=== PATIENT | female | born 1990 | race African-American/Black ===

== ENCOUNTER 2016-07-21 14:29 | Emergency (ER) | payer BC ==
--- NOTE | ~2016-07-21 | US134 ---
[facility] A Service of [facility] RADIOLOGY TEXT RESULTS PATIENT: JL VIVEROS LOCATION: [facility] : [birth year] UNIT #: [id number] AGE: [address]: Mustapha Morgan MD SEX: F ORDER DR: [id number] [facility] [address] [place], [place] [address] [id number] MR#: [id number] Acc #: [id number] NAME: JL VIVEROS : 1990 SEX: F STUDY DATE/TIME: 07/21/2016 15:29 UNIT: [facility] ROOM: STUDY DESCRIPTION: US Transvaginal Attending Physician: Mustapha Morgan M.D. Ordering Physician: Mustapha Morgan M.D. Primary Care Physician: No Primary Care Physician MEDICAL IMAGING REPORT This report is preliminary unless electronic signature is present EXAM Pelvic ultrasound INDICATIONS Pelvic cramping for the past week. Positive urine test. Quantitative hCG not available at the time of this study. PROCEDURE Cisneros-scale and Doppler imaging of the pelvis via transvaginal approach. COMPARISON None FINDINGS Uterus is anteverted and measures 9.9 x 5.0 x 5.3 cm. Endometrium measures 1.2 cm. No intrauterine is seen. The right ovary measures 5.0 x 2.2 x 2.5 cm. There is a 2.1-cm, crenulated lesion in the right ovary. Left ovary measures 3.5 x 1.3 x 3.3 cm and is normal. No free pelvic fluid. IMPRESSION 1. Negative pelvic ultrasound. No evidence for intrauterine . This is nonspecific and could represent changes of very early or previous spontaneous . 2. A 2.1-cm crenulated lesion in the right ovary has the appearance of a collapsing corpus luteum. Dictated by... Craig Hubbard M.D. THIS IS AN ELECTRONICALLY VERIFIED REPORT Craig Hubbard M.D. at 07/22/2016 1:56 PM [facility] A Service of [facility] RADIOLOGY TEXT RESULTS PATIENT: JL VIVEROS LOCATION: [facility] : [birth year] UNIT #: [id number] AGE: [address]: Mustapha Morgan MD SEX: F ORDER DR: MARTELL/kary TD: 07/21/2016 17:19 JOB #: [id number] MEDICAL IMAGING REPORT Page 1 of 1 COPY
[2016-07-21 15:23] LABS: BASOPHIL% 0.5 % (0-2.5); EOSINOPHIL# 0.2 X10e3 (0-0.7); HEMATOCRIT 41.1 % (35.0-45.0); HEMOGLOBIN 13.5 gm/dL (12.0-16.0); LYMPHOCYTE# 2.4 X10e3 (1.0-3.5); LYMPHOCYTE% 31.4 % (17.0-45.0); MEAN CELL VOLUME 91.9 FL (83-96); MEAN CORPUSCULAR HEMOGLOBIN 30.2 PG (28-34); MEAN CORPUSCULAR HGB CONC 32.9 g/dL (30-36); MEAN PLATELET VOLUME 9.3 FL (6.5-11.5); MONOCYTE# 0.8 X10e3 (0-1.0); NEUTROPHIL# 4.3 X10e3 (1.5-7.1); NEUTROPHIL% 56.1 % (40-75); PLATELET COUNT 209 X10e3 (140-420); RED BLOOD COUNT 4.47 X10e (3.90-5.30); RED CELL DISTRIBUTION WIDTH 13.4 % (11.0-15.5); WHITE BLOOD COUNT 7.6 X10e3 (4.0-10.5)
[2016-07-21 15:33] LABS: URINE SOURCE CLEAN CATCH
[2016-07-21 15:42] LABS: DIFF IND NO
[2016-07-21 15:45] LABS: URINE APPEARANCE CLEAR; URINE BILIRUBIN NEG (NEG); URINE BLOOD NEG (NEG); URINE COLOR YELLOW; URINE GLUCOSE NEG (NEG); URINE KETONE TRACE (NEG); URINE LEUKOCYTE ESTERASE NEG (NEG); URINE NITRATE NEG (NEG); URINE PROTEIN NEG (NEG); URINE SPECIFIC GRAVITY 1.035 (1.003-1.035)
[2016-07-21 15:49] LABS: BILIRUBIN, DIRECT 0.1 mg/dL (0.0-0.2); BILIRUBIN,INDIRECT 0.5 mg/dL (0.0-0.9); BILIRUBIN,TOTAL 0.6 mg/dL (0.2-2.0); BUN/CREATININE RATIO 24.28; CALCIUM SERUM 9.1 mg/dL (8.4-10.2); CREATININE SERUM 0.7 mg/dL (0.6-1.4); GLOM FILT RATE Estimated 140.5 mL/min (>60); POTASSIUM 4.1 mmol/L (3.5-5.1); PROTEIN TOTAL SERUM 7.3 g/dL (6.0-8.3)
[2016-07-21 15:57] LABS: CULTURE INDICATED? NO
[2016-07-24 14:57] LABS: CHLAMYDIA TRACH Not Detected (Not Detected); N GONOR Not Detected (Not Detected)
== END 2016-07-21 17:25 | disposition home or self-care (01) ==
LOC: CED 14:29
PROVIDERS: Emergency Medicine
DX: R10.9 Unspecified abdominal pain (principal)
CPT/HCPCS: 76830; 80048; 80076; 81003; 84702; 84703; 85025; 86900; 86901; 87491; 87591; 87808; 87905; 99284